=== PATIENT | male | born 1970 | race African-American/Black ===

== ENCOUNTER 2022-02-14 08:01 | Outpatient (RCR) | payer OTHER, SELFPAY ==
[2022-02-14 09:02] LABS: Anion Gap 7 mmol/L (8-16); Blood Urea Nitrogen 17 mg/dL (9-20); Calcium 8.7 mg/dL (8.4-10.2); Carbon Dioxide 27 mmol/L (22-30); Chloride 94 mmol/L (98-107); Estimated Glomerular Filt Rate > 60; Glucose 80 mg/dL (65-110); Potassium 4.3 mmol/L (3.4-5.0); Sodium 128 mmol/L (137-145)
[2022-02-14 09:37] LABS: Cortisol Baseline 8.32 ug/dL
[2022-02-18 20:31] LABS: Triiodothyronine T3 Free 3.4 pg/mL (2.3-4.2)
== END 2022-05-15 23:59 | disposition home or self-care (01) ==
LOC: ANHVASCINF 08:01
PROVIDERS: Visit Provider Internal Medicine Endocrinology, Diabetes & Metabolism
DX: E87.1 Hypo-osmolality and hyponatremia (principal)
CPT/HCPCS: 36415; 80048; 83930; 84439; 84443; 84481; 96372; J0834